=== PATIENT | female | born 1995 | race Caucasian/White ===

== ENCOUNTER 2017-11-02 22:20 | Emergency (ER) | payer OTHER ==
[~2017-11-02] VITALS: Ht 157.5 cm; Wt 56.7 kg
[~2017-11-02 22:20] MED LIST: ACET325 PO; ADAL40PEN INJ; Adipex-P37.5 M1 PO; Adipex-P37.5 MG PO; BIRTH CONTROL; CENTRUM KIDS; CEPH500 PO; CYCL10 PO; DIPH50; DULO30 PO; ENOX60I; ESCI5 PO; FERR325; FLAGYL; FLUO20 PO; HYDACE5325 PO; HYDACE7.5 PO; HYDMOR2; HYDMOR2 PO; MEDR150I IM; MERC50; MESA400ER; Norco 5-325 Ta1 EACH PO; OMEP20ER; ONDA8 PO; ONDA8ODT MM; ORTHO MICRONO0.35 MG PO; OXYACE5T PO; OXYC5; OXYC5 PO; PRED10; PROM25 PO; Percocet 5-3251 EACH PO; Prednisone10 MG PO; RXHYDMOR2 PO; RXONDA4ODT MM; SULTRIDS PO; Zofran Odt8 MG SL; [UNRECOGNIZED DRUG - OTHER]; [UNRECOGNIZED DRUG - REMARK]; [UNRECOGNIZED DRUG - REMARK]
[2017-11-03 01:00] LABS: Source, Urine Clean Catch
[2017-11-03 01:03] LABS: Bilirubin, Urine Neg (Neg); Blood, Urine Neg (Neg); Glucose Qualitative, Urine Neg (Neg); Ketones, Urine Neg (Neg); Leukocyte Esterase, Urine Neg (Neg); Nitrite, Urine Neg (Neg); Protein, Urine Neg (Neg); Urobilinogen, Urine NORM (Normal)
[2017-11-03 01:06] LABS: Appearance, Urine Clear (Clear); Color, Urine Pale Yellow (P-Yellow)
[2017-11-03] MEDS ORDERED: SPIR50 PO (01:34)
[2017-11-03] MEDS ORDERED: Vsl#3 Capsule1 EACH PO (01:34)
[2017-11-03 02:08] LABS: Alanine Aminotransfer (ALT/SGP 18 U/L (12-78); Albumin, Blood 3.6 g/dL (3.4-5.0); Albumin/Globulin Ratio 0.9 (0.8-1.8); Alk Phos 54 U/L (50-136); Anion Gap 12 mmol/L (6-16); Aspartate Aminotrans (AST/SGOT 24 U/L (12-37); Bilirubin, Total 0.2 mg/dL (0.1-1.0); Blood Urea Nitrogen 8 mg/dL (8-24); Bun/Creatinine Ratio 14.5 (12.0-20.0); CO2, Blood 23 mmol/L (21-32); Calcium, Blood 8.5 mg/dL (8.5-10.1); Chloride, Blood 107 mmol/L (98-108); Creatinine, Blood 0.55 mg/dL (0.40-1.00); Glomerular Filtration Rate >60 (60-); Glucose, Blood 74 mg/dL (70-99); Potassium, Blood 4.1 mmol/L (3.5-5.5); Sodium, Blood 142 mmol/L (136-145); Total Protein, Blood 7.6 g/dL (6.4-8.2)
[2017-11-03 02:10] LABS: BASOPHILS ABSOLUTE AUTO 0.05 K/mm3 (0.00-0.23); BASOPHILS PERCENT AUTO 0 % (0-2); EOSINOPHILS ABSOLUTE AUTO 0.65 K/mm3 (0.00-0.68); EOSINOPHILS PERCENT AUTO 5 % (0-6); Hematocrit 42.3 % (33.0-51.0); Hemoglobin 13.8 g/dL (11.5-16.0); IMMATURE GRAN ABSOLUTE AUTO 0.06 K/mm3 (0.00-0.10); IMMATURE GRAN PERCENT AUTO 1 % (0-1); LYMPHOCYTES ABSOLUTE AUTO 5.29 K/mm3 (0.84-5.20); LYMPHOCYTES PERCENT AUTO 40 % (21-46); MONOCYTES ABSOLUTE AUTO 0.92 K/mm3 (0.16-1.47); MONOCYTES PERCENT AUTO 7 % (4-13); Mean Corpuscular HGB 28.2 pg (26.0-34.0); Mean Corpuscular HGB Conc 32.6 g/dL (31.5-36.5); Mean Corpuscular Volume 86 fL (80-100); Mean Platelet Volume 10.7 fL (9.1-12.4); NEUTROPHILS PERCENT AUTO 47 % (41-73); Platelet Count 260 K/mm3 (150-400); RDW Coefficient Variation 13.2 % (11.7-14.2); RDW Standard Deviation 40.7 fL (35.1-46.3); White Blood Cell Count 13.17 K/mm3 (4.00-11.30)
[2017-12-01] MEDS ORDERED: Vsl#3 Capsule1 EACH (13:46)
[2017-12-01] MEDS ORDERED: Cyclobenzaprine5 MG (13:46)
[2017-12-01] MEDS ORDERED: Questran4 GM (13:46)
== END 2017-11-03 06:25 | disposition home or self-care (01) ==
LOC: ER 22:20
PROVIDERS: Emergency Medicine
DX: K51.90 Ulcerative colitis, unspecified, without complications (principal); N83.201 Unspecified ovarian cyst, right side; Z88.8 Allergy status to other drugs, medicaments and biological substances; Z79.899 Other long term (current) drug therapy; Z98.890 Other specified postprocedural states; Z90.49 Acquired absence of other specified parts of digestive tract
CPT/HCPCS: 74176; 76830; 76856; 80053; 81003; 81025; 83690; 85025; 96374; 96375; 96376; 99284; J1170; J2405

== ENCOUNTER 2017-12-08 10:27 | Day surgery (SDC) | payer OTHER ==
[~2017-12-08] VITALS: Ht 157.5 cm; Wt 81.2 kg
[~2017-12-08 10:27] MED LIST changes: +Cyclobenzaprine5 MG; +Questran4 GM; +SPIR50 PO; +Vsl#3 Capsule1 EACH; +Vsl#3 Capsule1 EACH PO
== END 2017-12-08 12:08 | disposition home or self-care (01) ==
LOC: ORSCSDS 10:27
PROVIDERS: Internal Medicine Gastroenterology
PROC: 0DBB8ZX Excision of Ileum, Via Natural or Artificial Opening Endoscopic, Diagnostic (ICD-10-PCS; principal; 2017-12-08 12:00)
DX: K51.90 Ulcerative colitis, unspecified, without complications (principal); Z79.899 Other long term (current) drug therapy; F41.8 Other specified anxiety disorders; H40.9 Unspecified glaucoma; E66.01 Morbid (severe) obesity due to excess calories; Z68.32 Body mass index [BMI] 32.0-32.9, adult
CPT/HCPCS: 88305; J7120

== ENCOUNTER 2019-03-14 07:13 | Emergency (ER) | payer OTHER ==
[~2019-03-14] VITALS: Ht 157.5 cm; Wt 80.7 kg
[~2019-03-14 07:13] MED LIST changes: +BUPR75 PO; +IBUP100S
[2019-03-14 09:11] LABS: Source, Urine Clean Catch
[2019-03-14 09:16] LABS: Bilirubin, Urine Neg (Neg); Blood, Urine Neg (Neg); Glucose Qualitative, Urine Neg (Neg); Ketones, Urine Neg (Neg); Leukocyte Esterase, Urine 1+ (Neg); Nitrite, Urine Neg (Neg); Protein, Urine Neg (Neg); Urobilinogen, Urine NORM (Normal)
[2019-03-14 09:24] LABS: Color, Urine Yellow (P-Yellow)
[2019-03-14 09:25] LABS: Appearance, Urine Clear (Clear)
[2019-03-14 09:26] LABS: Bacteria Rare /hpf; Red Blood Cells, Urine 0-2 /hpf (0-2); Squamous Epithelial Cells Mod /hpf (Few); White Blood Cells, Urine 0-2 /hpf (0-5)
[2019-03-14 09:34] LABS: Alanine Aminotransfer (ALT/SGP 29 U/L (12-78); Alk Phos 73 U/L (50-136); Anion Gap 7 mmol/L (6-16); Aspartate Aminotrans (AST/SGOT 28 U/L (12-37); Bilirubin, Total 0.2 mg/dL (0.1-1.0); Blood Urea Nitrogen 5 mg/dL (8-24); Bun/Creatinine Ratio 6.8 (12.0-20.0); CO2, Blood 23 mmol/L (21-32); Calcium, Blood 8.8 mg/dL (8.5-10.1); Chloride, Blood 107 mmol/L (98-108); Creatinine, Blood 0.74 mg/dL (0.40-1.00); Globulin, Blood 4.1 g/dL (2.2-4.0); Glomerular Filtration Rate >60 (60-); Glucose, Blood 94 mg/dL (70-99); Potassium, Blood 4.1 mmol/L (3.5-5.5); Sodium, Blood 137 mmol/L (136-145); Total Protein, Blood 8.1 g/dL (6.4-8.2)
[2019-03-14 09:49] LABS: BASOPHILS ABSOLUTE AUTO 0.07 K/mm3 (0.00-0.23); BASOPHILS PERCENT AUTO 1 % (0-2); EOSINOPHILS ABSOLUTE AUTO 0.13 K/mm3 (0.00-0.68); EOSINOPHILS PERCENT AUTO 1 % (0-6); Hematocrit 42.3 % (33.0-51.0); IMMATURE GRAN ABSOLUTE AUTO 0.08 K/mm3 (0.00-0.10); IMMATURE GRAN PERCENT AUTO 1 % (0-1); LYMPHOCYTES ABSOLUTE AUTO 1.73 K/mm3 (0.84-5.20); LYMPHOCYTES PERCENT AUTO 13 % (21-46); MONOCYTES ABSOLUTE AUTO 0.49 K/mm3 (0.16-1.47); MONOCYTES PERCENT AUTO 4 % (4-13); Mean Corpuscular HGB 27.9 pg (26.0-34.0); Mean Corpuscular HGB Conc 33.1 g/dL (31.5-36.5); Mean Corpuscular Volume 84 fL (80-100); NEUTROPHILS ABSOLUTE AUTO 11.13 K/mm3 (1.96-9.15); NEUTROPHILS PERCENT AUTO 82 % (41-73); Platelet Count 258 K/mm3 (150-400); RDW Coefficient Variation 13.2 % (11.7-14.2); RDW Standard Deviation 40.2 fL (35.1-46.3); Red Blood Cell Count 5.01 M/mm3 (3.80-5.20); White Blood Cell Count 13.63 K/mm3 (4.00-11.30)
[2019-03-14] MEDS ORDERED: IBUP600 PO (12:45)
== END 2019-03-14 13:30 | disposition home or self-care (01) ==
LOC: ER 07:13
PROVIDERS: Physician Assistant
DX: N83.201 Unspecified ovarian cyst, right side (principal); Z88.8 Allergy status to other drugs, medicaments and biological substances; Z79.899 Other long term (current) drug therapy; Z90.49 Acquired absence of other specified parts of digestive tract
CPT/HCPCS: 36415; 74177; 76830; 76856; 80053; 81001; 81025; 85025; 87086; 96361-59; 96372-59; 96374-59; 96375-59; 99284-25; J1885; J2405; J3010; J7030; Q9967

== ENCOUNTER 2019-07-17 07:26 | Emergency (ER) | payer BC, OTHER ==
[~2019-07-17] VITALS: Ht 157.5 cm; Wt 79.8 kg
[~2019-07-17 07:26] MED LIST changes: +IBUP600 PO
[2019-07-17 08:01] LABS: BASOPHILS ABSOLUTE AUTO 0.06 K/mm3 (0.00-0.23); BASOPHILS PERCENT AUTO 1 % (0-2); EOSINOPHILS ABSOLUTE AUTO 0.68 K/mm3 (0.00-0.68); EOSINOPHILS PERCENT AUTO 6 % (0-6); Hematocrit 43.7 % (33.0-51.0); Hemoglobin 14.2 g/dL (11.5-16.0); IMMATURE GRAN ABSOLUTE AUTO 0.02 K/mm3 (0.00-0.10); IMMATURE GRAN PERCENT AUTO 0 % (0-1); LYMPHOCYTES ABSOLUTE AUTO 3.21 K/mm3 (0.84-5.20); LYMPHOCYTES PERCENT AUTO 29 % (21-46); MONOCYTES ABSOLUTE AUTO 0.86 K/mm3 (0.16-1.47); MONOCYTES PERCENT AUTO 8 % (4-13); Mean Corpuscular HGB 27.8 pg (26.0-34.0); Mean Corpuscular HGB Conc 32.5 g/dL (31.5-36.5); Mean Corpuscular Volume 86 fL (80-100); Mean Platelet Volume 9.9 fL (9.1-12.4); NEUTROPHILS ABSOLUTE AUTO 6.24 K/mm3 (1.96-9.15); NEUTROPHILS PERCENT AUTO 56 % (41-73); Platelet Count 259 K/mm3 (150-400); RDW Coefficient Variation 12.8 % (11.7-14.2); RDW Standard Deviation 39.9 fL (35.1-46.3); Red Blood Cell Count 5.11 M/mm3 (3.80-5.20); White Blood Cell Count 11.07 K/mm3 (4.00-11.30)
[2019-07-17 08:17] LABS: Alanine Aminotransfer (ALT/SGP 35 U/L (12-78); Albumin, Blood 4.1 g/dL (3.4-5.0); Albumin/Globulin Ratio 1.1 (0.8-1.8); Alk Phos 65 U/L (50-136); Anion Gap 7 mmol/L (6-16); Aspartate Aminotrans (AST/SGOT 28 U/L (12-37); Bilirubin, Total 0.3 mg/dL (0.1-1.0); Blood Urea Nitrogen 7 mg/dL (8-24); Bun/Creatinine Ratio 8.6 (12.0-20.0); CO2, Blood 26 mmol/L (21-32); Calcium, Blood 9.1 mg/dL (8.5-10.1); Chloride, Blood 108 mmol/L (98-108); Creatinine, Blood 0.81 mg/dL (0.40-1.00); Globulin, Blood 3.8 g/dL (2.2-4.0); Glomerular Filtration Rate >60 (60-); Glucose, Blood 79 mg/dL (70-99); Potassium, Blood 3.7 mmol/L (3.5-5.5); Sodium, Blood 141 mmol/L (136-145); Total Protein, Blood 7.9 g/dL (6.4-8.2)
[2019-07-17] MEDS ORDERED: Amoxicillin500 MG PO (08:55)
[2019-07-17] MEDS ORDERED: Roxicodone5 MG PO (08:55)
== END 2019-07-17 09:02 | disposition home or self-care (01) ==
LOC: ER 07:26
PROVIDERS: Emergency Medicine
DX: K08.89 Other specified disorders of teeth and supporting structures (principal); K03.81 Cracked tooth; K51.90 Ulcerative colitis, unspecified, without complications; Z87.891 Personal history of nicotine dependence; Z88.8 Allergy status to other drugs, medicaments and biological substances; Z79.899 Other long term (current) drug therapy
CPT/HCPCS: 36415; 80053; 81025; 83690; 85025; 96361; 96374; 96375; 99284-25; J1170; J1885; J2405; J7120

== ENCOUNTER 2019-08-02 14:47 | Emergency (ER) | payer BC, OTHER ==
[~2019-08-02] VITALS: Ht 157.5 cm; Wt 80.7 kg
[~2019-08-02 14:47] MED LIST changes: +Amoxicillin500 MG PO; +Roxicodone5 MG PO
[2019-08-02 15:25] LABS: BASOPHILS ABSOLUTE AUTO 0.05 K/mm3 (0.00-0.23); BASOPHILS PERCENT AUTO 0 % (0-2); EOSINOPHILS ABSOLUTE AUTO 0.29 K/mm3 (0.00-0.68); EOSINOPHILS PERCENT AUTO 1 % (0-6); Hematocrit 43.7 % (33.0-51.0); Hemoglobin 14.4 g/dL (11.5-16.0); IMMATURE GRAN PERCENT AUTO 1 % (0-1); LYMPHOCYTES ABSOLUTE AUTO 2.94 K/mm3 (0.84-5.20); LYMPHOCYTES PERCENT AUTO 14 % (21-46); MONOCYTES ABSOLUTE AUTO 1.05 K/mm3 (0.16-1.47); MONOCYTES PERCENT AUTO 5 % (4-13); Mean Corpuscular HGB 28.6 pg (26.0-34.0); Mean Corpuscular Volume 87 fL (80-100); Mean Platelet Volume 10.2 fL (9.1-12.4); NEUTROPHILS ABSOLUTE AUTO 17.16 K/mm3 (1.96-9.15); NEUTROPHILS PERCENT AUTO 80 % (41-73); Platelet Count 293 K/mm3 (150-400); RDW Coefficient Variation 12.8 % (11.7-14.2); RDW Standard Deviation 40.4 fL (35.1-46.3); Red Blood Cell Count 5.04 M/mm3 (3.80-5.20); White Blood Cell Count 21.59 K/mm3 (4.00-11.30)
[2019-08-02 15:50] LABS: Alanine Aminotransfer (ALT/SGP 21 U/L (12-78); Albumin, Blood 4.1 g/dL (3.4-5.0); Albumin/Globulin Ratio 1.1 (0.8-1.8); Alk Phos 67 U/L (50-136); Anion Gap 5 mmol/L (6-16); Aspartate Aminotrans (AST/SGOT 23 U/L (12-37); Bilirubin, Total 0.6 mg/dL (0.1-1.0); Blood Urea Nitrogen 6 mg/dL (8-24); Bun/Creatinine Ratio 8.4 (12.0-20.0); CO2, Blood 26 mmol/L (21-32); Calcium, Blood 8.9 mg/dL (8.5-10.1); Chloride, Blood 107 mmol/L (98-108); Creatinine, Blood 0.71 mg/dL (0.40-1.00); Globulin, Blood 3.6 g/dL (2.2-4.0); Glomerular Filtration Rate >60 (60-); Glucose, Blood 91 mg/dL (70-99); Potassium, Blood 3.7 mmol/L (3.5-5.5); Sodium, Blood 138 mmol/L (136-145); Total Protein, Blood 7.7 g/dL (6.4-8.2)
[2019-08-02 16:53] LABS: Source, Urine Clean Catch
[2019-08-02 16:56] LABS: Bilirubin, Urine Neg (Neg); Blood, Urine 2+ (Neg); Glucose Qualitative, Urine Neg (Neg); Ketones, Urine 2+ (Neg); Leukocyte Esterase, Urine Neg (Neg); Nitrite, Urine Neg (Neg); Protein, Urine Neg (Neg); Specific Gravity, Urine 1.015 (1.003-1.022); Urobilinogen, Urine NORM (Normal); pH, Urine 6.5 (5.0-8.0)
[2019-08-02 17:06] LABS: Appearance, Urine Clear (Clear); Color, Urine Yellow (P-Yellow)
[2019-08-02 17:08] LABS: Red Blood Cells, Urine 0-2 /hpf (0-2); Squamous Epithelial Cells Many /hpf (Few); White Blood Cells, Urine Not Seen /hpf (0-5)
[2019-08-02 17:09] LABS: Bacteria Mod /hpf
== END 2019-08-02 19:37 | disposition short-term general hospital (02) ==
LOC: ER 14:47
PROVIDERS: Physician Assistant
DX: K63.1 Perforation of intestine (nontraumatic) (principal); Z88.8 Allergy status to other drugs, medicaments and biological substances; Z79.899 Other long term (current) drug therapy; Z87.891 Personal history of nicotine dependence
CPT/HCPCS: 36415; 74176; 80053; 81001; 83690; 85025; 87086; 93005; 93010; 96361; 96365; 96375; 96376; 99285-25; J1170; J1200; J2405; J2543; J2550; J3010; J7030

== ENCOUNTER 2019-09-09 11:27 | Emergency (ER) | payer BC, OTHER ==
[~2019-09-09] VITALS: Ht 157.5 cm; Wt 80.7 kg
[2019-09-09 12:10] LABS: BASOPHILS ABSOLUTE AUTO 0.04 K/mm3 (0.00-0.23); BASOPHILS PERCENT AUTO 1 % (0-2); EOSINOPHILS PERCENT AUTO 2 % (0-6); Hematocrit 44.5 % (33.0-51.0); Hemoglobin 14.7 g/dL (11.5-16.0); IMMATURE GRAN ABSOLUTE AUTO 0.03 K/mm3 (0.00-0.10); IMMATURE GRAN PERCENT AUTO 1 % (0-1); LYMPHOCYTES PERCENT AUTO 9 % (21-46); MONOCYTES ABSOLUTE AUTO 0.66 K/mm3 (0.16-1.47); MONOCYTES PERCENT AUTO 10 % (4-13); Mean Corpuscular HGB 28.1 pg (26.0-34.0); Mean Corpuscular Volume 85 fL (80-100); Mean Platelet Volume 10.2 fL (9.1-12.4); NEUTROPHILS ABSOLUTE AUTO 5.08 K/mm3 (1.96-9.15); NEUTROPHILS PERCENT AUTO 78 % (41-73); Platelet Count 232 K/mm3 (150-400); RDW Coefficient Variation 13.2 % (11.7-14.2); RDW Standard Deviation 40.8 fL (35.1-46.3); Red Blood Cell Count 5.23 M/mm3 (3.80-5.20); White Blood Cell Count 6.51 K/mm3 (4.00-11.30)
[2019-09-09 12:23] LABS: Source, Urine Clean Catch
[2019-09-09] MEDS ORDERED: CIPR500 PO (12:30)
[2019-09-09 12:34] LABS: Appearance, Urine Clear (Clear); Bilirubin, Urine Neg (Neg); Blood, Urine Neg (Neg); Color, Urine Yellow (P-Yellow); Glucose Qualitative, Urine Neg (Neg); Ketones, Urine 2+ (Neg); Leukocyte Esterase, Urine Neg (Neg); Nitrite, Urine Neg (Neg); Protein, Urine Neg (Neg); Urobilinogen, Urine NORM (Normal)
[2019-09-09 12:49] LABS: Alanine Aminotransfer (ALT/SGP 25 U/L (12-78); Albumin, Blood 4.7 g/dL (3.4-5.0); Albumin/Globulin Ratio 1.1 (0.8-1.8); Alk Phos 73 U/L (50-136); Anion Gap 7 mmol/L (6-16); Aspartate Aminotrans (AST/SGOT 20 U/L (12-37); Bilirubin, Total 0.3 mg/dL (0.1-1.0); Blood Urea Nitrogen 4 mg/dL (8-24); Bun/Creatinine Ratio 5.3 (12.0-20.0); CO2, Blood 24 mmol/L (21-32); Calcium, Blood 9.6 mg/dL (8.5-10.1); Chloride, Blood 106 mmol/L (98-108); Creatinine, Blood 0.75 mg/dL (0.40-1.00); Globulin, Blood 4.4 g/dL (2.2-4.0); Glomerular Filtration Rate >60 (60-); Glucose, Blood 91 mg/dL (70-99); Potassium, Blood 3.5 mmol/L (3.5-5.5); Sodium, Blood 137 mmol/L (136-145); Total Protein, Blood 9.1 g/dL (6.4-8.2)
[2019-09-09] MEDS ORDERED: Zofran4 MG PO (15:13)
[2019-09-09] MEDS ORDERED: Lomotil Tablet1 EACH PO (15:13)
== END 2019-09-09 15:28 | disposition home or self-care (01) ==
LOC: ER 11:27
PROVIDERS: Emergency Medicine
DX: B34.9 Viral infection, unspecified (principal); Z88.8 Allergy status to other drugs, medicaments and biological substances; Z79.899 Other long term (current) drug therapy; Z87.891 Personal history of nicotine dependence
CPT/HCPCS: 36415; 71260; 74177; 80053; 81003; 81025; 83690; 85025; 93005; 93010; 96361; 96374-59; 96375-59; 96376-59; 99284-25; J2270; J2405; J7030; Q9967

== ENCOUNTER 2020-05-31 00:29 | Emergency (ER) | payer BC, OTHER ==
[~2020-05-31] VITALS: Ht 157.5 cm; Wt 81.7 kg
[~2020-05-31 00:29] MED LIST changes: +CIPR500 PO; +Lomotil Tablet1 EACH PO; +Zofran4 MG PO
[2020-05-31 00:55] LABS: BASOPHILS ABSOLUTE AUTO 0.07 K/mm3 (0.00-0.23); BASOPHILS PERCENT AUTO 1 % (0-2); EOSINOPHILS ABSOLUTE AUTO 0.81 K/mm3 (0.00-0.68); EOSINOPHILS PERCENT AUTO 9 % (0-6); IMMATURE GRAN ABSOLUTE AUTO 0.03 K/mm3 (0.00-0.10); IMMATURE GRAN PERCENT AUTO 0 % (0-1); LYMPHOCYTES ABSOLUTE AUTO 2.64 K/mm3 (0.84-5.20); LYMPHOCYTES PERCENT AUTO 29 % (21-46); MONOCYTES ABSOLUTE AUTO 0.54 K/mm3 (0.16-1.47); MONOCYTES PERCENT AUTO 6 % (4-13); Mean Corpuscular HGB 27.8 pg (26.0-34.0); Mean Corpuscular HGB Conc 32.6 g/dL (31.5-36.5); Mean Corpuscular Volume 86 fL (80-100); Mean Platelet Volume 10.1 fL (9.1-12.4); NEUTROPHILS ABSOLUTE AUTO 5.05 K/mm3 (1.96-9.15); NEUTROPHILS PERCENT AUTO 55 % (41-73); Platelet Count 283 K/mm3 (150-400); RDW Coefficient Variation 13.2 % (11.7-14.2); RDW Standard Deviation 40.7 fL (35.1-46.3); Red Blood Cell Count 5.03 M/mm3 (3.80-5.20); White Blood Cell Count 9.14 K/mm3 (4.00-11.30)
[2020-05-31 01:16] LABS: Alanine Aminotransfer (ALT/SGP 51 U/L (12-78); Albumin, Blood 4.1 g/dL (3.4-5.0); Albumin/Globulin Ratio 1.1 (0.8-1.8); Alk Phos 64 U/L (50-136); Anion Gap 8 mmol/L (6-16); Aspartate Aminotrans (AST/SGOT 38 U/L (12-37); Bilirubin, Total 0.4 mg/dL (0.1-1.0); Blood Urea Nitrogen 6 mg/dL (8-24); Bun/Creatinine Ratio 10.5 (12.0-20.0); CO2, Blood 26 mmol/L (21-32); Calcium, Blood 8.9 mg/dL (8.5-10.1); Chloride, Blood 108 mmol/L (98-108); Creatinine, Blood 0.57 mg/dL (0.40-1.00); Globulin, Blood 3.8 g/dL (2.2-4.0); Glomerular Filtration Rate >60 (60-); Glucose, Blood 99 mg/dL (70-99); Potassium, Blood 3.7 mmol/L (3.5-5.5); Sodium, Blood 142 mmol/L (136-145); Total Protein, Blood 7.9 g/dL (6.4-8.2)
[2020-05-31 04:55] LABS: Source, Urine Clean Catch
[2020-05-31 04:57] LABS: Bilirubin, Urine Neg (Neg); Blood, Urine Neg (Neg); Glucose Qualitative, Urine Neg (Neg); Ketones, Urine Neg (Neg); Leukocyte Esterase, Urine Neg (Neg); Nitrite, Urine Neg (Neg); Protein, Urine 1+ (Neg); Specific Gravity, Urine 1.015 (1.003-1.022); Urobilinogen, Urine NORM (Normal)
[2020-05-31 04:59] LABS: Appearance, Urine Clear (Clear); Color, Urine Yellow (P-Yellow)
[2020-05-31] MEDS ORDERED: ONDA4ODT MM (06:46)
[2020-05-31] MEDS ORDERED: DELTASONE20 MG PO (06:46)
== END 2020-05-31 07:01 | disposition home or self-care (01) ==
LOC: ER 00:29
PROVIDERS: Physician Assistant
DX: K51.90 Ulcerative colitis, unspecified, without complications (principal); Z88.8 Allergy status to other drugs, medicaments and biological substances; Z88.1 Allergy status to other antibiotic agents
CPT/HCPCS: 36415; 74022; 80053; 83690; 85025; 96374; 96375; 96376; 99284-25; A9270; J2270; J2405; J7030; J7512

== ENCOUNTER → 2020-10-14 | Outpatient (CLI) | payer OTHER ==
[~2020-10-14] MED LIST changes: +DELTASONE20 MG PO; +ONDA4ODT MM
[2020-10-16 01:08] LABS: CHLAMYDIA TRACHOMATIS, NAA Negative (Negative)
== END ==
LOC: LAB SHORT 11:15 → LAB 11:15
PROVIDERS: Obstetrics & Gynecology
DX: Z01.419 Encounter for gynecological examination (general) (routine) without abnormal findings (principal); Z11.3 Encounter for screening for infections with a predominantly sexual mode of transmission; Z88.8 Allergy status to other drugs, medicaments and biological substances
CPT/HCPCS: 87491; 87591; G0123

== ENCOUNTER 2021-03-20 07:21 | Emergency (ER) | payer OTHER ==
[~2021-03-20] VITALS: Ht 157.5 cm; Wt 84.4 kg
[2021-03-20 08:18] LABS: BASOPHILS ABSOLUTE AUTO 0.09 K/mm3 (0.00-0.23); BASOPHILS PERCENT AUTO 1 % (0-2); EOSINOPHILS PERCENT AUTO 7 % (0-6); Hematocrit 43.2 % (33.0-51.0); Hemoglobin 14.3 g/dL (11.5-16.0); IMMATURE GRAN ABSOLUTE AUTO 0.05 K/mm3 (0.00-0.10); IMMATURE GRAN PERCENT AUTO 0 % (0-1); LYMPHOCYTES ABSOLUTE AUTO 2.57 K/mm3 (0.84-5.20); LYMPHOCYTES PERCENT AUTO 22 % (21-46); MONOCYTES ABSOLUTE AUTO 0.74 K/mm3 (0.16-1.47); MONOCYTES PERCENT AUTO 6 % (4-13); Mean Corpuscular HGB 28.6 pg (26.0-34.0); Mean Corpuscular HGB Conc 33.1 g/dL (31.5-36.5); Mean Corpuscular Volume 86 fL (80-100); Mean Platelet Volume 10.1 fL (9.1-12.4); NEUTROPHILS ABSOLUTE AUTO 7.61 K/mm3 (1.96-9.15); NEUTROPHILS PERCENT AUTO 64 % (41-73); Platelet Count 274 K/mm3 (150-400); RDW Coefficient Variation 13.3 % (11.7-14.2); RDW Standard Deviation 41.8 fL (35.1-46.3); White Blood Cell Count 11.86 K/mm3 (4.00-11.30)
[2021-03-20 08:36] LABS: Alanine Aminotransfer (ALT/SGP 30 U/L (12-78); Albumin, Blood 3.7 g/dL (3.4-5.0); Albumin/Globulin Ratio 0.9 (0.8-1.8); Alk Phos 60 U/L (50-136); Anion Gap 5 mmol/L (6-16); Aspartate Aminotrans (AST/SGOT 21 U/L (12-37); Bilirubin, Total 0.3 mg/dL (0.1-1.0); Blood Urea Nitrogen 5 mg/dL (8-24); Bun/Creatinine Ratio 7.2 (12.0-20.0); CO2, Blood 25 mmol/L (21-32); Calcium, Blood 8.9 mg/dL (8.5-10.1); Chloride, Blood 109 mmol/L (98-108); Globulin, Blood 4.2 g/dL (2.2-4.0); Glomerular Filtration Rate >60 (60-); Glucose, Blood 105 mg/dL (70-99); Potassium, Blood 3.7 mmol/L (3.5-5.5); Sodium, Blood 139 mmol/L (136-145); Total Protein, Blood 7.9 g/dL (6.4-8.2)
[2021-03-20 10:27] LABS: Source, Urine Clean Catch
[2021-03-20 10:34] LABS: Appearance, Urine Clear (Clear); Bilirubin, Urine Neg (Neg); Blood, Urine 5+ (Neg); Color, Urine Yellow (P-Yellow); Glucose Qualitative, Urine Neg (Neg); Ketones, Urine 2+ (Neg); Leukocyte Esterase, Urine Neg (Neg); Nitrite, Urine Neg (Neg); Protein, Urine Neg (Neg); Specific Gravity, Urine 1.005 (1.003-1.022); Urobilinogen, Urine NORM (Normal)
[2021-03-20 10:59] LABS: Bacteria Rare /hpf; Squamous Epithelial Cells Mod /hpf (Few); White Blood Cells, Urine 0-2 /hpf (0-5)
[2021-03-20] MEDS ORDERED: ONDA4ODT MM (12:44)
== END 2021-03-20 13:00 | disposition home or self-care (01) ==
LOC: ER 07:21
PROVIDERS: Emergency Medicine
DX: O20.0 Threatened abortion (principal); Z88.8 Allergy status to other drugs, medicaments and biological substances; Z3A.01 Less than 8 weeks gestation of pregnancy
CPT/HCPCS: 36415; 76801; 76817; 80053; 81001; 84702; 85025; 86900; 86901; 87086; 96374; 96375; 99284-25; A9270; J2270; J2405

== ENCOUNTER 2022-02-14 20:27 | Emergency (ER) | payer OTHER ==
[~2022-02-14] VITALS: Ht 157.5 cm; Wt 81.7 kg
[2022-02-14] MEDS ORDERED: PRENATAL TABLE1 EAC2 PO (21:20)
[2022-02-14 22:18] LABS: BASOPHILS ABSOLUTE AUTO 0.07 K/mm3 (0.00-0.23); BASOPHILS PERCENT AUTO 1 % (0-2); EOSINOPHILS ABSOLUTE AUTO 0.31 K/mm3 (0.00-0.68); EOSINOPHILS PERCENT AUTO 3 % (0-6); Hematocrit 42.4 % (33.0-51.0); Hemoglobin 14.3 g/dL (11.5-16.0); IMMATURE GRAN ABSOLUTE AUTO 0.05 K/mm3 (0.00-0.10); IMMATURE GRAN PERCENT AUTO 0 % (0-1); LYMPHOCYTES ABSOLUTE AUTO 3.75 K/mm3 (0.84-5.20); LYMPHOCYTES PERCENT AUTO 30 % (21-46); MONOCYTES PERCENT AUTO 8 % (4-13); Mean Corpuscular HGB 28.1 pg (26.0-34.0); Mean Corpuscular HGB Conc 33.7 g/dL (31.5-36.5); Mean Corpuscular Volume 83 fL (80-100); Mean Platelet Volume 10.3 fL (9.1-12.4); NEUTROPHILS ABSOLUTE AUTO 7.46 K/mm3 (1.96-9.15); NEUTROPHILS PERCENT AUTO 59 % (41-73); Platelet Count 273 K/mm3 (150-400); RDW Coefficient Variation 13.2 % (11.7-14.2); RDW Standard Deviation 40.7 fL (35.1-46.3); Red Blood Cell Count 5.09 M/mm3 (3.80-5.20); White Blood Cell Count 12.64 K/mm3 (4.00-11.30)
[2022-02-14 22:36] LABS: Albumin, Blood 4.1 g/dL (3.4-5.0); Albumin/Globulin Ratio 1.1 (0.8-1.8); Bilirubin, Total 0.4 mg/dL (0.1-1.0); Bun/Creatinine Ratio 11.1 (12.0-20.0); Calcium, Blood 9.5 mg/dL (8.5-10.1); Creatinine, Blood 0.63 mg/dL (0.40-1.00); Globulin, Blood 3.9 g/dL (2.2-4.0); Potassium, Blood 3.5 mmol/L (3.5-5.5)
[2022-02-15 00:01] LABS: Source, Urine Clean Catch
[2022-02-15 00:09] LABS: Bilirubin, Urine Neg (Neg); Blood, Urine Neg (Neg); Color, Urine Yellow (P-Yellow); Glucose Qualitative, Urine Neg (Neg); Ketones, Urine 4+ (Neg); Leukocyte Esterase, Urine Neg (Neg); Nitrite, Urine Neg (Neg); Protein, Urine 1+ (Neg); Specific Gravity, Urine 1.025 (1.003-1.022); Urobilinogen, Urine NORM (Normal)
[2022-02-15 00:18] LABS: Appearance, Urine Hazy (Clear); Bacteria Mod /hpf; Mucus Light (0-Heavy); Red Blood Cells, Urine 0-2 /hpf (0-2); Squamous Epithelial Cells Few /hpf (Few)
[2022-02-15] MEDS ORDERED: NITR100CA PO (00:39)
== END 2022-02-15 01:17 | disposition home or self-care (01) ==
LOC: ER 20:27
PROVIDERS: Student in an Organized Health Care Education/Training Program
DX: O26.891 Other specified pregnancy related conditions, first trimester (principal); R10.32 Left lower quadrant pain; M25.552 Pain in left hip; M54.9 Dorsalgia, unspecified; O28.8 Other abnormal findings on antenatal screening of mother; Z88.8 Allergy status to other drugs, medicaments and biological substances; Z79.899 Other long term (current) drug therapy; Z3A.08 8 weeks gestation of pregnancy
CPT/HCPCS: 36415; 76801; 80053; 81001; 84702; 85025; 96374; 99284-25; A9270; J2405

== ENCOUNTER → 2022-06-13 | Outpatient (CLI) | payer OTHER ==
[~2022-06-13] MED LIST changes: +NITR100CA PO; +PRENATAL TABLE1 EAC2 PO
[2022-06-14 10:35] LABS: Candida species (DNA Probe) Negative (NEGATIVE); G. vaginalis (DNA Probe) Negative (NEGATIVE); T. vaginalis (DNA Probe) Negative (NEGATIVE)
== END ==
LOC: LAB SHORT 16:45 → LAB 16:45
PROVIDERS: Obstetrics & Gynecology
DX: N92.1 Excessive and frequent menstruation with irregular cycle (principal)
CPT/HCPCS: 87480; 87510; 87660

== ENCOUNTER 2022-07-08 14:37 | Emergency (ER) | payer OTHER ==
[~2022-07-08] VITALS: Ht 157.5 cm; Wt 85.3 kg
[2022-07-08 15:42] LABS: BASOPHILS PERCENT AUTO 0 % (0-2); EOSINOPHILS ABSOLUTE AUTO 0.12 K/mm3 (0.00-0.68); EOSINOPHILS PERCENT AUTO 1 % (0-6); Hematocrit 44.3 % (33.0-51.0); Hemoglobin 14.5 g/dL (11.5-16.0); IMMATURE GRAN ABSOLUTE AUTO 0.38 K/mm3 (0.00-0.10); IMMATURE GRAN PERCENT AUTO 2 % (0-1); LYMPHOCYTES ABSOLUTE AUTO 1.48 K/mm3 (0.84-5.20); LYMPHOCYTES PERCENT AUTO 6 % (21-46); MONOCYTES ABSOLUTE AUTO 1.72 K/mm3 (0.16-1.47); MONOCYTES PERCENT AUTO 7 % (4-13); Mean Corpuscular HGB 28.1 pg (26.0-34.0); Mean Corpuscular HGB Conc 32.7 g/dL (31.5-36.5); Mean Corpuscular Volume 86 fL (80-100); Mean Platelet Volume 10.9 fL (9.1-12.4); NEUTROPHILS ABSOLUTE AUTO 21.95 K/mm3 (1.96-9.15); NEUTROPHILS PERCENT AUTO 85 % (41-73); Platelet Count 276 K/mm3 (150-400); RDW Coefficient Variation 13.8 % (11.7-14.2); RDW Standard Deviation 43.4 fL (35.1-46.3); Red Blood Cell Count 5.16 M/mm3 (3.80-5.20); White Blood Cell Count 25.75 K/mm3 (4.00-11.30)
[2022-07-08 16:03] LABS: Source, Urine Clean Catch
[2022-07-08 16:08] LABS: Appearance, Urine Hazy (Clear); Blood, Urine 1+ (Neg); Color, Urine Yellow (P-Yellow); Glucose Qualitative, Urine Neg (Neg); Ketones, Urine 4+ (Neg); Leukocyte Esterase, Urine 1+ (Neg); Nitrite, Urine Pos (Neg); Protein, Urine 3+ (Neg); Specific Gravity, Urine 1.025 (1.003-1.022); Urobilinogen, Urine 1+ (Normal)
[2022-07-08 16:19] LABS: Albumin, Blood 3.2 g/dL (3.4-5.0); Albumin/Globulin Ratio 0.7 (0.8-1.8); Bilirubin, Total 0.4 mg/dL (0.1-1.0); Bun/Creatinine Ratio 10.4 (12.0-20.0); Calcium, Blood 9.6 mg/dL (8.5-10.1); Creatinine, Blood 0.48 mg/dL (0.40-1.00); Globulin, Blood 4.9 g/dL (2.2-4.0); Potassium, Blood 3.9 mmol/L (3.5-5.5); Total Protein, Blood 8.1 g/dL (6.4-8.2)
[2022-07-08 16:20] LABS: Bilirubin, Urine 1+ (Neg)
[2022-07-08 16:21] LABS: Mucus Mod (0-Heavy)
[2022-07-08 16:22] LABS: Bacteria Mod /hpf; Red Blood Cells, Urine 0-2 /hpf (0-2); Squamous Epithelial Cells Few /hpf (Few)
[2022-07-08 17:21] LABS: Influenza A, PCR NEGATIVE (NEGATIVE); Influenza B, PCR NEGATIVE (NEGATIVE); Resp Syncytial Virus, PCR NEGATIVE (NEGATIVE); SARS-Cov-2 (COVID-19) PCR, MMC NEGATIVE (NEGATIVE)
[2022-07-08] MEDS ORDERED: PROM25 PO (19:36)
== END 2022-07-08 20:37 | disposition home or self-care (01) ==
LOC: ER 14:37
PROVIDERS: Emergency Medicine; Physician Assistant
DX: O98.512 Other viral diseases complicating pregnancy, second trimester (principal); A08.4 Viral intestinal infection, unspecified; Z20.822 Contact with and (suspected) exposure to COVID-19; Z3A.28 28 weeks gestation of pregnancy
CPT/HCPCS: 0241U; 36415; 72195; 74181; 80053; 81001; 83690; 85025; 87086; J2765; J7120

== ENCOUNTER 2022-09-02 10:32 | Inpatient (IN) | payer OTHER ==
[~2022-09-02] VITALS: Ht 157.5 cm; Wt 90.9 kg
[2022-09-02 11:16] LABS: BASOPHILS ABSOLUTE AUTO 0.06 K/mm3 (0.00-0.23); BASOPHILS PERCENT AUTO 0 % (0-2); EOSINOPHILS ABSOLUTE AUTO 0.19 K/mm3 (0.00-0.68); EOSINOPHILS PERCENT AUTO 1 % (0-6); Hematocrit 38.9 % (33.0-51.0); IMMATURE GRAN ABSOLUTE AUTO 0.16 K/mm3 (0.00-0.10); IMMATURE GRAN PERCENT AUTO 1 % (0-1); LYMPHOCYTES ABSOLUTE AUTO 2.72 K/mm3 (0.84-5.20); LYMPHOCYTES PERCENT AUTO 19 % (21-46); MONOCYTES ABSOLUTE AUTO 0.89 K/mm3 (0.16-1.47); MONOCYTES PERCENT AUTO 6 % (4-13); Mean Corpuscular HGB 27.1 pg (26.0-34.0); Mean Corpuscular HGB Conc 33.4 g/dL (31.5-36.5); Mean Corpuscular Volume 81 fL (80-100); Mean Platelet Volume 11.5 fL (9.1-12.4); NEUTROPHILS PERCENT AUTO 73 % (41-73); Platelet Count 223 K/mm3 (150-400); RDW Coefficient Variation 13.7 % (11.7-14.2); RDW Standard Deviation 40.1 fL (35.1-46.3); White Blood Cell Count 14.72 K/mm3 (4.00-11.30)
[2022-09-02 11:28] LABS: Albumin, Blood 2.6 g/dL (3.4-5.0); Albumin/Globulin Ratio 0.6 (0.8-1.8); Bilirubin, Total 0.4 mg/dL (0.1-1.0); Bun/Creatinine Ratio 9.8 (12.0-20.0); Creatinine, Blood 0.51 mg/dL (0.40-1.00); Globulin, Blood 4.7 g/dL (2.2-4.0); Potassium, Blood 3.9 mmol/L (3.5-5.5); Total Protein, Blood 7.3 g/dL (6.4-8.2)
[2022-09-02 13:53] LABS: Protein, Urine Random 55.6 mg/dL (0.0-11.9); Protein/Creat Ratio, Ur Random 0.2
--- NOTE | 2022-09-02 20:01 | NUR ---
DR HODGES IS CALLED FOR ADMISSION ORDERS. AMYLASE AND LIPASE ADDED TO 2000 LABS.
[2022-09-02 20:58] LABS: Albumin, Blood 2.5 g/dL (3.4-5.0); Albumin/Globulin Ratio 0.6 (0.8-1.8); Bilirubin, Total 0.5 mg/dL (0.1-1.0); Calcium, Blood 8.9 mg/dL (8.5-10.1); Creatinine, Blood 0.5 mg/dL (0.40-1.00); Globulin, Blood 4.3 g/dL (2.2-4.0); Potassium, Blood 3.8 mmol/L (3.5-5.5); Total Protein, Blood 6.8 g/dL (6.4-8.2)
--- NOTE | 2022-09-02 21:00 | NUR ---
LABS REVIEWED WITH DR HODGES. ORDERS FOR STOOL SPECIMEN RECEIVED.
[2022-09-02 21:32] LABS: BASOPHILS ABSOLUTE AUTO 0.04 K/mm3 (0.00-0.23); BASOPHILS PERCENT AUTO 0 % (0-2); EOSINOPHILS ABSOLUTE AUTO 0.07 K/mm3 (0.00-0.68); EOSINOPHILS PERCENT AUTO 1 % (0-6); Hematocrit 37.7 % (33.0-51.0); Hemoglobin 12.7 g/dL (11.5-16.0); IMMATURE GRAN ABSOLUTE AUTO 0.11 K/mm3 (0.00-0.10); IMMATURE GRAN PERCENT AUTO 1 % (0-1); LYMPHOCYTES ABSOLUTE AUTO 2.58 K/mm3 (0.84-5.20); LYMPHOCYTES PERCENT AUTO 19 % (21-46); MONOCYTES ABSOLUTE AUTO 0.83 K/mm3 (0.16-1.47); MONOCYTES PERCENT AUTO 6 % (4-13); Mean Corpuscular HGB 27.7 pg (26.0-34.0); Mean Corpuscular HGB Conc 33.7 g/dL (31.5-36.5); Mean Corpuscular Volume 82 fL (80-100); Mean Platelet Volume 11.8 fL (9.1-12.4); NEUTROPHILS ABSOLUTE AUTO 9.86 K/mm3 (1.96-9.15); NEUTROPHILS PERCENT AUTO 73 % (41-73); Platelet Count 204 K/mm3 (150-400); RDW Coefficient Variation 13.8 % (11.7-14.2); RDW Standard Deviation 41.1 fL (35.1-46.3); Red Blood Cell Count 4.58 M/mm3 (3.80-5.20); White Blood Cell Count 13.49 K/mm3 (4.00-11.30)
--- NOTE | 2022-09-02 21:42 | NUR ---
PT IS HAVING PAIN AND NAUSEA UNRELIEVED BY MEDICATION. NEW ORDERS RECEIVED.
--- NOTE | 2022-09-02 22:07 | NUR ---
PT HAS EPISODE OF EMESIS, APPROX 200ML ORANGE LIQUID. PT HAD ORANGE POPSICLE EARLIER.
--- NOTE | 2022-09-02 22:46 | NUR ---
PT IS HAVING INCREASING ABD PAIN AND NAUSEA. ABD/PELVIC CT ORDERED BY PROVIDER.
--- NOTE | 2022-09-02 23:39 | NUR ---
DR HODGES IS CALLED TO BEDSIDE. AWAITING CT RESULTS.
[2022-09-03 00:38] LABS: BASOPHILS ABSOLUTE AUTO 0.02 K/mm3 (0.00-0.23); BASOPHILS PERCENT AUTO 0 % (0-2); EOSINOPHILS ABSOLUTE AUTO 0.04 K/mm3 (0.00-0.68); EOSINOPHILS PERCENT AUTO 0 % (0-6); Hematocrit 34.7 % (33.0-51.0); Hemoglobin 11.8 g/dL (11.5-16.0); IMMATURE GRAN ABSOLUTE AUTO 0.07 K/mm3 (0.00-0.10); IMMATURE GRAN PERCENT AUTO 1 % (0-1); LYMPHOCYTES PERCENT AUTO 17 % (21-46); MONOCYTES ABSOLUTE AUTO 0.78 K/mm3 (0.16-1.47); MONOCYTES PERCENT AUTO 7 % (4-13); Mean Corpuscular HGB 27.7 pg (26.0-34.0); Mean Corpuscular Volume 82 fL (80-100); Mean Platelet Volume 11.4 fL (9.1-12.4); NEUTROPHILS ABSOLUTE AUTO 8.89 K/mm3 (1.96-9.15); NEUTROPHILS PERCENT AUTO 75 % (41-73); Platelet Count 195 K/mm3 (150-400); RDW Coefficient Variation 13.8 % (11.7-14.2); RDW Standard Deviation 40.2 fL (35.1-46.3); Red Blood Cell Count 4.26 M/mm3 (3.80-5.20)
[2022-09-03 00:54] LABS: Albumin, Blood 2.3 g/dL (3.4-5.0); Albumin/Globulin Ratio 0.6 (0.8-1.8); Bilirubin, Total 0.5 mg/dL (0.1-1.0); Bun/Creatinine Ratio 6.2 (12.0-20.0); Calcium, Blood 8.5 mg/dL (8.5-10.1); Creatinine, Blood 0.48 mg/dL (0.40-1.00); Globulin, Blood 4.1 g/dL (2.2-4.0); Potassium, Blood 3.6 mmol/L (3.5-5.5); Total Protein, Blood 6.4 g/dL (6.4-8.2)
[2022-09-03 05:39] LABS: BASOPHILS ABSOLUTE AUTO 0.02 K/mm3 (0.00-0.23); BASOPHILS PERCENT AUTO 0 % (0-2); EOSINOPHILS ABSOLUTE AUTO 0.03 K/mm3 (0.00-0.68); EOSINOPHILS PERCENT AUTO 0 % (0-6); Hematocrit 33.5 % (33.0-51.0); Hemoglobin 11.4 g/dL (11.5-16.0); IMMATURE GRAN ABSOLUTE AUTO 0.09 K/mm3 (0.00-0.10); IMMATURE GRAN PERCENT AUTO 1 % (0-1); LYMPHOCYTES ABSOLUTE AUTO 1.95 K/mm3 (0.84-5.20); LYMPHOCYTES PERCENT AUTO 17 % (21-46); MONOCYTES ABSOLUTE AUTO 0.84 K/mm3 (0.16-1.47); MONOCYTES PERCENT AUTO 7 % (4-13); Mean Corpuscular HGB 27.7 pg (26.0-34.0); Mean Corpuscular Volume 82 fL (80-100); Mean Platelet Volume 11.1 fL (9.1-12.4); NEUTROPHILS ABSOLUTE AUTO 8.43 K/mm3 (1.96-9.15); NEUTROPHILS PERCENT AUTO 74 % (41-73); Platelet Count 201 K/mm3 (150-400); RDW Coefficient Variation 13.9 % (11.7-14.2); RDW Standard Deviation 40.9 fL (35.1-46.3); Red Blood Cell Count 4.11 M/mm3 (3.80-5.20); White Blood Cell Count 11.36 K/mm3 (4.00-11.30)
--- NOTE | 2022-09-03 06:15 | NUR ---
0615 REPORT RECEIVED FROM DB MILTON AT FAMILY .
[2022-09-03 06:29] LABS: Albumin, Blood 2.2 g/dL (3.4-5.0); Albumin/Globulin Ratio 0.6 (0.8-1.8); Bilirubin, Total 0.5 mg/dL (0.1-1.0); Bun/Creatinine Ratio 7.5 (12.0-20.0); Calcium, Blood 8.5 mg/dL (8.5-10.1); Creatinine, Blood 0.53 mg/dL (0.40-1.00); Globulin, Blood 3.8 g/dL (2.2-4.0); Potassium, Blood 3.7 mmol/L (3.5-5.5)
--- NOTE | 2022-09-03 07:03 | NUR ---
REPORT CALLED TO YOAN KLINE. PT IS TRANSFERRED VIA BED TO SURGICAL FLOOR ROOM 208. PT IS UP TO THE BATHROOM PRIOR TO TRANSFER AND STARTS TO BECOME PAINFUL AND NAUSEATED. SHE IS MEDICATED WITH MORPHINE AND PHENERGAN IV. CONSULT IS CALLED TO DR. CONDE'S ANSWERRING SERVICE FOR THIS AM.
--- NOTE | 2022-09-03 07:25 | NUR ---
PT ARRIVED TO UNIT AT APROX 0645 FROM [facility]. PT REPORTS 7/10 GENERALIZED ABD PAIN. PT REPORTS PAIN AT TIMES RADIATES AROUND TO BACK, DOES NOT FEEL ABD GETTING TIGHT WITH PAIN. ABD MUSCLES RELAXED, TENDERNESS TO R SIDE W/PALPATION. MEDICATED WITH 0.5MG DILAUDID UPON ARRIVAL. AT THIS TIME PT REPORTS PAIN IMPROVED, 3/10. APPEARS MORE COMFORTABLE. PT GIVEN ICE CHIPS, EDUCATED ON TAKING ONLY SMALL AMTS FOR ORAL COMFORT. IVF RUNNING 150ML/HR. PT EDUCATED TO CALL IF ANY CHANGES OR CONCERNS.
--- NOTE | 2022-09-03 14:10 | NUR ---
PT WITH 100ML BRIGHT GREEN EMESIS. C/O PAIN MID ABD/L SIDE PAIN AT THIS TIME. MEDICATED WITH 0.5 MG DILAUDID PER EMAR AND 2MG ZOFRAN. PT APPEARS MORE COMFORTABLE FOLLOWING ADMINISTRATION. [facility] WAS HERE TO EVALUATE PT AT APROX 1240. FATHER AT BEDSIDE.
--- NOTE | 2022-09-03 17:06 | NUR ---
DR HODGES IN ROOM AT APROX 1615 TO SEE PT. PLAN IS TO CONTINUE BOWEL REST AND IVF W/PAIN MGMT AT THIS TIME. SEE PROGRESS NOTE IN PT CHART FOR FULL PLAN.
--- NOTE | 2022-09-03 18:47 | NUR ---
SHIFT SUMMARY PT HAS CONTINUED TO HAVE ABD PAIN W/ N/V-MEDICATED PER EMAR, STATES MEDICATION HELPS "SOME", MAKES IT TOLERABLE. HAD TWO EPISODES OF BRIGHT GREEN EMESIS 100ML EACH TIME. IVF RUNNING 125/HR, PT NPO OTHER THAN SMALL AMT ICE CHIPS PER COMFORT. URINE DARK IN COLOR, VOIDING T/O SHIFT. [facility] MONITORING FHT ONCE PER SHIFT, DID EVAL FOR CONTRACTIONS ONCE, STRIP ON CHART. PT UP TO SHOWER. AMBULATED IN HALLWAY X'S 2. FAMILY AT BEDSIDE.
--- NOTE | 2022-09-04 03:43 | NUR ---
2000: IV FLUIDS BOLUS GIVEN. DECREASE OUTPUT WITH DARK URINE. PAIN STILL HAVING CONSTANT PAIN, COMES LIKE WAVES. PAIN MANAGED WITH MORPHINE AND DILAUDID. PT ALSO REPORTS NAUSEA AND INTERMITTENT VOMITING - LESS THAN 100ML EACH TIME. 0230: PT REPORTS HAVING CONTRACTIONS INTERMITTENTLY. UNABLE TO DETERMINE IF THE FETUS HAS BEEN ACTIVE. NOTIFIED LAUREN MILTON FROM FAMILY . LAUREN MILTON CAME IN TO SEE PT, EVALUATED WITH MONITOR. NEW FLUID BOLUS ORDERED. LAB REQUEST TO BE DRAWN WELL. CALL LIGHT WITHIN REACH. WILL CONTINUE TO MONITOR.
[2022-09-04 04:15] LABS: Mean Corpuscular HGB 27.5 pg (26.0-34.0); Mean Corpuscular HGB Conc 33.3 g/dL (31.5-36.5); Mean Corpuscular Volume 82 fL (80-100); Mean Platelet Volume 11.4 fL (9.1-12.4); Platelet Count 195 K/mm3 (150-400); RDW Coefficient Variation 13.7 % (11.7-14.2); Red Blood Cell Count 4.37 M/mm3 (3.80-5.20); White Blood Cell Count 4.16 K/mm3 (4.00-11.30)
[2022-09-04 04:47] LABS: Albumin, Blood 1.9 g/dL (3.4-5.0); Albumin/Globulin Ratio 0.5 (0.8-1.8); Bilirubin, Total 0.7 mg/dL (0.1-1.0); Bun/Creatinine Ratio 9.1 (12.0-20.0); Calcium, Blood 8.5 mg/dL (8.5-10.1); Creatinine, Blood 0.55 mg/dL (0.40-1.00); Globulin, Blood 3.9 g/dL (2.2-4.0); Potassium, Blood 3.4 mmol/L (3.5-5.5); Total Protein, Blood 5.8 g/dL (6.4-8.2)
--- NOTE | 2022-09-04 04:53 | NUR ---
0441: Report received from LAB, lactic acid of 2.1. Notified Elizabet Conte RN from Family . Elizabet MILTON will notify Dr. Olivier and will provide an update with the patient's condition. Will wait for orders/plan.
--- NOTE | 2022-09-04 04:54 | NUR ---
DR HODGES UPDATED WITH AM LABS INCLUDING LACTIC ACID 2.1 AND FHT. SHE WILL CONSULT WITH DR CONDE AND RETURN CALL.
--- NOTE | 2022-09-04 05:02 | NUR ---
0502: Elizabet MILTON from Family called back, she spoked to Dr. Olivier and Dr. Olivier will touch base with Dr. Henderson regarding lactic acid trending up. An order of fluids bolus x1 added.
[2022-09-04 05:36] LABS: BAND PERCENT MAN 33 % (0-8); BASOPHILS PERCENT MAN 0 % (0-2); EOSINOPHILS PERCENT MAN 0 % (0-6); LYMPHOCYTES ABSOLUTE MAN 1.04 K/mm3 (0.84-5.20); LYMPHOCYTES PERCENT MAN 25 % (21-46); MONOCYTES ABSOLUTE MAN 0.37 K/mm3 (0.16-1.47); MONOCYTES PERCENT MAN 9 % (4-13); MYELOCYTE ABSOLUTE MAN 0.04 K/mm3 (0.00-0.00); MYELOCYTE PERCENT MAN 1 % (0-0); SEG NEUTROPHILS PERCENT MAN 32 % (41-73); TOTAL CELLS COUNTED 100
--- NOTE | 2022-09-04 06:50 | NUR ---
POWER GLIDE ATTEMPT FAILED IN L UPPER ARM. MANUAL PRESSURE HELD BY RN AND PRESSURE DRESSING PLACED.
[2022-09-04 07:47] LABS: Hemoglobin 11.7 g/dL (11.5-16.0); Mean Corpuscular HGB 27.6 pg (26.0-34.0); Mean Corpuscular HGB Conc 33.4 g/dL (31.5-36.5); Mean Corpuscular Volume 83 fL (80-100); Mean Platelet Volume 11.5 fL (9.1-12.4); Platelet Count 206 K/mm3 (150-400); RDW Coefficient Variation 13.9 % (11.7-14.2); Red Blood Cell Count 4.24 M/mm3 (3.80-5.20); White Blood Cell Count 4.98 K/mm3 (4.00-11.30)
--- NOTE | 2022-09-04 08:17 | NUR ---
5730: LAUREN MILTON, IN CONTACT WITH DR. HODGES WITH PLAN. ATTEMPTING TO PLACE PIV. NO SUCCESS. LAUREN MILTON ABLE TO PLACE A NEW IV ON L FOREARM AND POWERGLIDE AT R ARM. FLUID BOLUS INFUSING. PAIN MED, DILAUDID AND ZOFRAN GIVEN TO PT. DAY SHIFT CHARGE NURSE HORACIO IS ALSO ASSISTING. HORACIO MILTON, PROVIDED AN UPDATE TO FAMILY.
[2022-09-04 08:23] LABS: BAND PERCENT MAN 44 % (0-8); BASOPHILS PERCENT MAN 0 % (0-2); EOSINOPHILS PERCENT MAN 0 % (0-6); LYMPHOCYTES ABSOLUTE MAN 0.79 K/mm3 (0.84-5.20); LYMPHOCYTES PERCENT MAN 16 % (21-46); METAMYELOCYTE ABSOLUTE MAN 0.14 K/mm3 (0.00-0.00); METAMYELOCYTE PERCENT MAN 3 % (0-0); MONOCYTES ABSOLUTE MAN 0.79 K/mm3 (0.16-1.47); MONOCYTES PERCENT MAN 16 % (4-13); MYELOCYTE ABSOLUTE MAN 0.04 K/mm3 (0.00-0.00); MYELOCYTE PERCENT MAN 1 % (0-0); NEUTROPHILS ABSOLUTE MAN 3.18 K/mm3 (1.96-9.15); SEG NEUTROPHILS PERCENT MAN 20 % (41-73); TOTAL CELLS COUNTED 100
--- NOTE | 2022-09-04 09:36 | NUR ---
PT TRANSFERED TO [facility]. BELONGINGS TAKEN DOWN.
--- NOTE | 2022-09-04 11:18 | NUR ---
PT IN ROOM 130 AT 1112. REPORT RECEIVED FROM YOAN VALLEJO. ASSUMED CARE/RECOVERY OF PT. PT TO STAY ON CLEAR LIQUID DIET UNTIL FURTHER NOTICE. PT IS TRIALING OFF OXYGEN WITH 95% O2. WILL CONTINTUE TO MONITOR.
--- NOTE | 2022-09-05 04:21 | NUR ---
0030 Juarez removed per patient don
[2022-09-05 09:33] LABS: Hemoglobin 9.8 g/dL (11.5-16.0); Mean Corpuscular HGB 28.1 pg (26.0-34.0); Mean Corpuscular HGB Conc 33.8 g/dL (31.5-36.5); Mean Corpuscular Volume 83 fL (80-100); Mean Platelet Volume 11.2 fL (9.1-12.4); Platelet Count 199 K/mm3 (150-400); RDW Standard Deviation 42.4 fL (35.1-46.3); Red Blood Cell Count 3.49 M/mm3 (3.80-5.20)
[2022-09-05 10:04] LABS: BAND PERCENT MAN 38 % (0-8); BASOPHILS ABSOLUTE MAN 0.06 K/mm3 (0.00-0.23); BASOPHILS PERCENT MAN 1 % (0-2); EOSINOPHILS ABSOLUTE MAN 0.25 K/mm3 (0.00-0.68); EOSINOPHILS PERCENT MAN 4 % (0-6); LYMPHOCYTES ABSOLUTE MAN 0.94 K/mm3 (0.84-5.20); LYMPHOCYTES PERCENT MAN 15 % (21-46); METAMYELOCYTE ABSOLUTE MAN 0.18 K/mm3 (0.00-0.00); METAMYELOCYTE PERCENT MAN 3 % (0-0); MONOCYTES ABSOLUTE MAN 0.81 K/mm3 (0.16-1.47); MONOCYTES PERCENT MAN 13 % (4-13); MYELOCYTE ABSOLUTE MAN 0.06 K/mm3 (0.00-0.00); MYELOCYTE PERCENT MAN 1 % (0-0); NEUTROPHILS ABSOLUTE MAN 3.96 K/mm3 (1.96-9.15); SEG NEUTROPHILS PERCENT MAN 25 % (41-73); TOTAL CELLS COUNTED 100
[2022-09-05 14:18] LABS: Albumin, Blood 1.6 g/dL (3.4-5.0); Albumin/Globulin Ratio 0.5 (0.8-1.8); Bilirubin, Total 0.3 mg/dL (0.1-1.0); Bun/Creatinine Ratio 12.6 (12.0-20.0); Calcium, Blood 8.5 mg/dL (8.5-10.1); Creatinine, Blood 0.63 mg/dL (0.40-1.00); Globulin, Blood 3.4 g/dL (2.2-4.0); Potassium, Blood 3.4 mmol/L (3.5-5.5)
--- NOTE | 2022-09-05 23:51 | NUR ---
pt asked about assistance to restroom. Notified nurs.
--- NOTE | 2022-09-05 23:54 | NUR ---
Patient was sleeping. Support person was holding Baby and requested [employer]. Notified nurse.
[2022-09-06 06:29] LABS: Albumin, Blood 1.7 g/dL (3.4-5.0); Albumin/Globulin Ratio 0.5 (0.8-1.8); Bilirubin, Total 0.3 mg/dL (0.1-1.0); Bun/Creatinine Ratio 11.2 (12.0-20.0); Calcium, Blood 8.5 mg/dL (8.5-10.1); Creatinine, Blood 0.54 mg/dL (0.40-1.00); Globulin, Blood 3.6 g/dL (2.2-4.0); Potassium, Blood 3.3 mmol/L (3.5-5.5); Total Protein, Blood 5.3 g/dL (6.4-8.2)
[2022-09-06 09:36] LABS: Magnesium, Blood 1.9 mg/dL (1.6-2.4); Phosphorus, Blood 3.7 mg/dL (2.5-4.9)
--- NOTE | 2022-09-06 11:52 | NUR ---
AGREE WITH ABOVE ASSESSMENT, PAO MILTONC
--- NOTE | 2022-09-06 13:35 | NUR ---
pt retort fireman machine quit working, will replaced with another one and will get pt an iv dose of iv meds until a replacement pump is available.
--- NOTE | 2022-09-06 14:48 | NUR ---
pcu here to put in iv powerglide with ultrasound.
--- NOTE | 2022-09-06 15:44 | NUR ---
IV RESTARTED, WITH DILAUDID AND LR FLUIDS. POTASSIUM STARTED, PHARMACY REPORTS COMPATABLE WITH LR AND DILAUDID
--- NOTE | 2022-09-06 17:52 | NUR ---
PATIENT TO IMAGING VIA W/C AT THIS TIME.
--- NOTE | 2022-09-06 17:57 | NUR ---
up to xray via wheelchair for abd series that was recommended to get by dr neal to dr gross.
--- NOTE | 2022-09-06 18:14 | NUR ---
PATIENT RETURNED FROM XRAY AT THIS TIME.
--- NOTE | 2022-09-07 10:12 | NUR ---
PATIENT PUMPED 8 ML BREAST MILK.
--- NOTE | 2022-09-07 12:35 | NUR ---
PATIENT PUMPED 12 MLS.
--- NOTE | 2022-09-07 15:59 | NUR ---
agree with above asessment abdelrahman childersc
--- NOTE | 2022-09-07 16:20 | NUR ---
page to dr montero. pt requests being moved to a soft diet, she needs some potatos or something, it will slow her watery stools down. she reports that this is what normally works for her, she hasnt had any vomiting all day and would like to try what works for her
[2022-09-08 06:07] LABS: Bun/Creatinine Ratio 1.8 (12.0-20.0); Calcium, Blood 8.6 mg/dL (8.5-10.1); Creatinine, Blood 0.56 mg/dL (0.40-1.00); Magnesium, Blood 1.7 mg/dL (1.6-2.4); Potassium, Blood 3.4 mmol/L (3.5-5.5)
--- NOTE | 2022-09-08 12:21 | NUR ---
after pt done eating will dc to boarder status, pt educated on how to give her own insulin, she isnt going home on insulin, but did require 3units coverage for lunch. pt did very will giving herself her 3 units. encouraged pt to get in with dr lowery to manage her diabetes as soon as she can, pt mom and brother are also diabetic and use insulin at home.
--- NOTE | 2022-09-08 12:48 | NUR ---
IVF RATE INCREASED TO 250 CC/HR PER ORDER.
--- NOTE | 2022-09-08 18:33 | NUR ---
pt more painful the last 1/2 of the shift with having all the stools, pt is dumping her hat and then going more, not much for urine output. iv fluids still at 250cc/hr.
--- NOTE | 2022-09-08 18:49 | NUR ---
DR TEJADA UPDATED ON THE I&O AND PATIENTS TINCREASED PAIN DUE TO STOOLING SO MUCH. TO RUN IV FLUIDS AT 250CC/HR THRU THE NIGHT.
[2022-09-09 08:53] LABS: Bun/Creatinine Ratio 3.4 (12.0-20.0); Calcium, Blood 8.5 mg/dL (8.5-10.1); Creatinine, Blood 0.59 mg/dL (0.40-1.00); Magnesium, Blood 1.6 mg/dL (1.6-2.4); Phosphorus, Blood 3.5 mg/dL (2.5-4.9); Potassium, Blood 3.4 mmol/L (3.5-5.5)
--- NOTE | 2022-09-09 13:50 | NUR ---
REPT TO Jose Alberto RODRIGUEZ RN
--- NOTE | 2022-09-09 15:26 | NUR ---
PER DR. CONDE'S NURSE NOTIFY. LAST 12 HOUR STOOL OUTPUT OF 5,375 / 12 = 447 ML/HR OF 20 MEQ KCL RUNNING. LACTATED RINGERS' TURNED OFF.
--- NOTE | 2022-09-09 15:35 | NUR ---
DR LYNCH IN THE [facility] DISCUSSING TEST RESULTS AND PLAN OF CARE
[2022-09-10 06:11] LABS: Bun/Creatinine Ratio 3.9 (12.0-20.0); Calcium, Blood 8.3 mg/dL (8.5-10.1); Creatinine, Blood 0.51 mg/dL (0.40-1.00); Potassium, Blood 3.9 mmol/L (3.5-5.5)
--- NOTE | 2022-09-10 14:46 | NUR ---
12 STOOL OUTPUT FROM [id number] IS 3,500ml X 0.5 / 12 = 145. New fluid rate adjusted to 145 ml/hr.
--- NOTE | 2022-09-11 03:13 | NUR ---
KCl NS rate changed from 145ml/hr to 220ml/hr at 0300 according to stool output.
[2022-09-11] MEDS ORDERED: ONDA4 PO (12:28)
[2022-09-11] MEDS ORDERED: NYST237S MT (12:29)
[2022-09-11] MEDS ORDERED: CANASA1000 MG PR (12:34)
--- NOTE | 2022-09-11 16:08 | NUR ---
PT D/C'D HOME AT 1405. PT TOOK ALL BELONGINGS HOME WITH HER. PT ESCORTED TO PRIVATE CAR BY RN.
--- NOTE | 2022-09-11 16:10 | NUR ---
PT RECEIVED WRITTEN AND VERBAL DISCHARGE INSTRUCTIONS AT 1330 TODAY. ALL QUESTIONS WERE ANSWERED, AND PT VERBALIZED HER UNDERSTANDING
== END 2022-09-11 14:05 | disposition home or self-care (01) | DRG 787 ==
LOC: OBS 10:32 → BC 10:32 → OBS 19:11 → SURS 19:12 → BC 19:12 → SURS 19:12 → BC 09-03 05:49
PROVIDERS: Obstetrics & Gynecology; Surgery; ADMIT Obstetrics & Gynecology
PROC: 0UN00ZZ Release Right Ovary, Open Approach (ICD-10-PCS; 2022-09-04)
PROC: 0UN50ZZ Release Right Fallopian Tube, Open Approach (ICD-10-PCS; 2022-09-04)
PROC: 10D00Z1 Extraction of Products of Conception, Low, Open Approach (ICD-10-PCS; principal; 2022-09-04 11:00)
PROC: 0DN80ZZ Release Small Intestine, Open Approach (ICD-10-PCS; 2022-09-04 11:00)
DX: O99.62 Diseases of the digestive system complicating childbirth (principal); K51.90 Ulcerative colitis, unspecified, without complications; K56.51 Intestinal adhesions [bands], with partial obstruction; K91.858 Other complications of intestinal pouch; O60.14X0 Preterm labor third trimester with preterm delivery third trimester, not applicable or unspecified; O76 Abnormality in fetal heart rate and rhythm complicating labor and delivery; N73.6 Female pelvic peritoneal adhesions (postinfective); Z37.0 Single live birth; Z3A.36 36 weeks gestation of pregnancy; Z88.8 Allergy status to other drugs, medicaments and biological substances; Z90.49 Acquired absence of other specified parts of digestive tract; Z79.899 Other long term (current) drug therapy; Z98.890 Other specified postprocedural states; Z93.3 Colostomy status; Z93.2 Ileostomy status; Z87.891 Personal history of nicotine dependence
CPT/HCPCS: 36415; 59025; 74019; 74177; 76705; 80048; 80053; 81003; 82150; 82570; 83605; 83690; 83735; 84100; 84156; 85025; 86850; 86900; 86901; A9270; C1751; C9113; J0330; J0456; J1100; J1170; J1885; J2210; J2270; J2370; J2405; J2550; J2590; J2704; J2765; J3010; J3105; J3480; J7050; J7120; Q9967

== ENCOUNTER 2022-12-03 20:18 | Inpatient (IN) | payer OTHER ==
[~2022-12-03] VITALS: Ht 157.5 cm; Wt 84.8 kg
[~2022-12-03 20:18] MED LIST changes: +CANASA1000 MG PR; +NYST237S MT; +ONDA4 PO
[2022-12-03 20:53] LABS: BASOPHILS ABSOLUTE AUTO 0.07 K/mm3 (0.00-0.23); BASOPHILS PERCENT AUTO 1 % (0-2); EOSINOPHILS PERCENT AUTO 6 % (0-6); Hemoglobin 13.5 g/dL (11.5-16.0); IMMATURE GRAN ABSOLUTE AUTO 0.01 K/mm3 (0.00-0.10); IMMATURE GRAN PERCENT AUTO 0 % (0-1); LYMPHOCYTES ABSOLUTE AUTO 4.34 K/mm3 (0.84-5.20); LYMPHOCYTES PERCENT AUTO 46 % (21-46); MONOCYTES ABSOLUTE AUTO 0.49 K/mm3 (0.16-1.47); MONOCYTES PERCENT AUTO 5 % (4-13); Mean Corpuscular HGB 23.6 pg (26.0-34.0); Mean Corpuscular HGB Conc 31.4 g/dL (31.5-36.5); Mean Corpuscular Volume 75 fL (80-100); Mean Platelet Volume 9.7 fL (9.1-12.4); NEUTROPHILS ABSOLUTE AUTO 4.01 K/mm3 (1.96-9.15); NEUTROPHILS PERCENT AUTO 42 % (41-73); Platelet Count 357 K/mm3 (150-400); RDW Coefficient Variation 14.4 % (11.7-14.2); RDW Standard Deviation 38.7 fL (35.1-46.3); Red Blood Cell Count 5.73 M/mm3 (3.80-5.20); White Blood Cell Count 9.52 K/mm3 (4.00-11.30)
[2022-12-03 21:11] LABS: Bilirubin, Total 0.5 mg/dL (0.1-1.0); Bun/Creatinine Ratio 7.3 (12.0-20.0); Calcium, Blood 9.7 mg/dL (8.5-10.1); Creatinine, Blood 0.68 mg/dL (0.40-1.00); Potassium, Blood 3.7 mmol/L (3.5-5.5); Total Protein, Blood 7.9 g/dL (6.4-8.2)
[2022-12-03 21:22] LABS: Albumin, Blood 3.9 g/dL (3.4-5.0)
[2022-12-03 22:39] LABS: Source, Urine Clean Catch
[2022-12-03 22:52] LABS: Bilirubin, Urine Neg (Neg); Blood, Urine Neg (Neg); Glucose Qualitative, Urine Neg (Neg); Ketones, Urine Neg (Neg); Leukocyte Esterase, Urine 1+ (Neg); Nitrite, Urine Neg (Neg); Protein, Urine Neg (Neg); Specific Gravity, Urine 1.005 (1.003-1.022); Urobilinogen, Urine NORM (Normal)
[2022-12-03 22:53] LABS: Appearance, Urine Clear (Clear); Color, Urine Pale Yellow (P-Yellow)
[2022-12-03 22:55] LABS: Bacteria Not Seen /hpf; Red Blood Cells, Urine Not Seen /hpf (0-2); Squamous Epithelial Cells Few /hpf (Few); White Blood Cells, Urine 0-2 /hpf (0-5)
[2022-12-04 01:09] VITALS: BP 145/92
--- NOTE | 2022-12-04 06:09 | NUR ---
SHIFT SUMMARY PT ER ADMIT THIS SHIFT FOR SBO, PT HAS BEEN HAVING ABD PAIN AND N/V FOR A FEW DAYS. PT HAS A PMH OF ULCERATIVE COLITIS AND BOWEL OBSTRUCTIONS. PT HAS HAD INTERMITTENT NAUSEA WITH DRY HEAVES AND CRAMPING ABD PAIN, MEDICATED PER EMAR PRN WITH EFFECT. PT HAS ATTEMPTED TO HAVE A BM SINCE ADMISSION BUT HAS BEEN UNSUCESSFUL. BOWEL TONES ARE HYPERACTIVE THIS AM. IVF INFUSING. PLAN IS FOR BOWEL FOLLOW THROUGH TODAY. PT HAS BEEN NPO MOST OF THE NIGHT. OK FROM DR. MCPHERSON FOR ICE CHIPS THIS AM. SURGICAL CONSULT IN PLACE, SURGEON NOTIFIED IN ER. NO ACUTE CHANGES SINCE ADMISSION. BED IN LOWEST POSITION, CALL LIGHT WITHIN REACH.
[2022-12-04 07:50] VITALS: BP 95/63
[2022-12-04 15:18] VITALS: BP 118/75
--- NOTE | 2022-12-04 16:29 | NUR ---
SHIFT SUMMARY PT AOX4 AND INDEPENDENT TO THE BATHROOM. ORIGINIALLY HAD A SMALL BOWEL FOLLOW THRU SCHEDULED TODAY BUT THREW UP A MAJORITY OF THE CONTRAST PRIOR TO THE PROCEDURE. DR. MARTINEZ CAME AND SAW THE PT, STATING TO OBSERVE OVER NIGHT TO SEE IF THE ISSUES RESOLVES ITSELF. THE PT HAD A LARGE, WATERY BM THIS AFTERNOON AND SAID IT HAS PROVIDED SOME RELIEF. HER L ARM IV WENT BAD AND A NEW IV WAS STARTED IN THE R ARM. SHE REMAINS NPO, ONLY EATING ICE CHIPS. THE ORDER FOR FLUIDS HAS DISCONTINUED AFTER THE SECOND BAG. HER FAMILY HAS BEEN IN AND OUT OF THE ROOM. SHE HAS C/O PAIN AND NAUSEA, MEDICATED PER THE EMAR. CALL LIGHT IS WITHIN REACH AND BED IN THE LOWEST POSITION. WILL REPORT TO ONCOMING NURSE.
[2022-12-04 20:04] VITALS: BP 115/73
[2022-12-05 05:00] VITALS: BP 95/58
[2022-12-05 05:08] LABS: BASOPHILS ABSOLUTE AUTO 0.03 K/mm3 (0.00-0.23); BASOPHILS PERCENT AUTO 1 % (0-2); EOSINOPHILS ABSOLUTE AUTO 0.33 K/mm3 (0.00-0.68); EOSINOPHILS PERCENT AUTO 7 % (0-6); Hematocrit 36.1 % (33.0-51.0); Hemoglobin 10.9 g/dL (11.5-16.0); IMMATURE GRAN PERCENT AUTO 0 % (0-1); LYMPHOCYTES ABSOLUTE AUTO 3.03 K/mm3 (0.84-5.20); LYMPHOCYTES PERCENT AUTO 61 % (21-46); MONOCYTES ABSOLUTE AUTO 0.66 K/mm3 (0.16-1.47); MONOCYTES PERCENT AUTO 13 % (4-13); Mean Corpuscular HGB 23.4 pg (26.0-34.0); Mean Corpuscular HGB Conc 30.2 g/dL (31.5-36.5); Mean Corpuscular Volume 78 fL (80-100); Mean Platelet Volume 9.9 fL (9.1-12.4); NEUTROPHILS PERCENT AUTO 18 % (41-73); Platelet Count 247 K/mm3 (150-400); RDW Coefficient Variation 14.6 % (11.7-14.2); RDW Standard Deviation 40.8 fL (35.1-46.3); Red Blood Cell Count 4.66 M/mm3 (3.80-5.20); White Blood Cell Count 4.95 K/mm3 (4.00-11.30)
[2022-12-05 05:25] LABS: Albumin, Blood 3.1 g/dL (3.4-5.0); Anion Gap 0 mmol/L (6-16); Blood Urea Nitrogen 6 mg/dL (8-24); Bun/Creatinine Ratio 8.2 (12.0-20.0); CO2, Blood 27 mmol/L (21-32); Calcium, Blood 8.5 mg/dL (8.5-10.1); Chloride, Blood 111 mmol/L (98-108); Creatinine, Blood 0.73 mg/dL (0.40-1.00); Glomerular Filtration Rate 116 (60-); Glucose, Blood 93 mg/dL (70-99); Phosphorus, Blood 3.7 mg/dL (2.5-4.9); Potassium, Blood 3.1 mmol/L (3.5-5.5); Sodium, Blood 138 mmol/L (136-145)
--- NOTE | 2022-12-05 06:22 | NUR ---
A/OX4; CALM AND COOPERATIVE. C/O ABD PAIN; PRN ANALGESICS PER EMAR. C/O FEELING NAUSEATED; PRN ANTI-EMETICS PER EMAR. SOMEWHAT HELPFUL PER PATIENT. IND IN ROOM. SOFT BPs. MULTIPLE LOOSE BMS. SLEEP PROMOTED. CALL LIGHT IN REACH; ENCOURAGED TO MAKE NEEDS KNOWN.
[2022-12-05 07:25] VITALS: BP 98/69
[2022-12-05 16:19] VITALS: BP 119/78
--- NOTE | 2022-12-05 18:01 | NUR ---
SHIFT SUMMARY NO ACUTE CHANGES. PT'S HAD A POWERGLIDE PLACED TODAY, IT WORKS WELL. SHE HAS C/O N/P T/O THE SHIFT AND WAS MEDICATED PER THE EMAR. SHE IS TOLERATING HER CLEAR LIQUID DIET WELL. POSSIBLE D/C TOMORROW. WILL REPORT TO ONCOMING NURSE.
[2022-12-05 20:52] VITALS: BP 115/69
[2022-12-06 02:51] VITALS: BP 107/72
[2022-12-06 04:35] LABS: BASOPHILS ABSOLUTE AUTO 0.04 K/mm3 (0.00-0.23); BASOPHILS PERCENT AUTO 1 % (0-2); EOSINOPHILS ABSOLUTE AUTO 0.33 K/mm3 (0.00-0.68); EOSINOPHILS PERCENT AUTO 6 % (0-6); Hematocrit 36.7 % (33.0-51.0); Hemoglobin 11.3 g/dL (11.5-16.0); IMMATURE GRAN PERCENT AUTO 0 % (0-1); LYMPHOCYTES ABSOLUTE AUTO 3.72 K/mm3 (0.84-5.20); LYMPHOCYTES PERCENT AUTO 63 % (21-46); MONOCYTES ABSOLUTE AUTO 0.48 K/mm3 (0.16-1.47); MONOCYTES PERCENT AUTO 8 % (4-13); Mean Corpuscular HGB 23.4 pg (26.0-34.0); Mean Corpuscular HGB Conc 30.8 g/dL (31.5-36.5); Mean Corpuscular Volume 76 fL (80-100); NEUTROPHILS PERCENT AUTO 22 % (41-73); Platelet Count 264 K/mm3 (150-400); RDW Coefficient Variation 14.6 % (11.7-14.2); RDW Standard Deviation 39.8 fL (35.1-46.3); Red Blood Cell Count 4.82 M/mm3 (3.80-5.20); White Blood Cell Count 5.87 K/mm3 (4.00-11.30)
[2022-12-06 05:14] LABS: Anion Gap 2 mmol/L (6-16); Blood Urea Nitrogen 4 mg/dL (8-24); Bun/Creatinine Ratio 5.7 (12.0-20.0); CO2, Blood 27 mmol/L (21-32); Chloride, Blood 108 mmol/L (98-108); Creatinine, Blood 0.71 mg/dL (0.40-1.00); Glomerular Filtration Rate 120 (60-); Glucose, Blood 94 mg/dL (70-99); Phosphorus, Blood 3.9 mg/dL (2.5-4.9); Potassium, Blood 3.3 mmol/L (3.5-5.5); Sodium, Blood 137 mmol/L (136-145)
[2022-12-06 07:30] VITALS: BP 121/66
[2022-12-06 15:49] VITALS: BP 112/78
[2022-12-06] MEDS ORDERED: ONDA4ODT MM (16:00)
[2022-12-06] MEDS ORDERED: TRAM50 PO (16:01)
--- NOTE | 2022-12-06 17:51 | NUR ---
PT DISCHARGED HOME. DISCHARGE PACKET EXPLAINED TO PT. NO NEW QUESTIONS OR CONCERNS. MEDICATIONS FAXED TO [facility] AND MEDICATION SCRIPT GIVEN TO PT. HEYDI ESTEBAN. PT ABLE TO DRESS INDEPENDENTLY. ALL BELONGINGS SENT HOME WITH PT. PT TAKEN BY WHEELCHAIR TO WAITING VEHICLE.
== END 2022-12-06 17:45 | disposition home or self-care (01) | DRG 390 ==
LOC: ER 20:18 → MEDS 23:31
PROVIDERS: Family Medicine; Student in an Organized Health Care Education/Training Program; ADMIT Student in an Organized Health Care Education/Training Program
DX: K56.609 Unspecified intestinal obstruction, unspecified as to partial versus complete obstruction (principal); G40.909 Epilepsy, unspecified, not intractable, without status epilepticus; E87.6 Hypokalemia; E88.09 Other disorders of plasma-protein metabolism, not elsewhere classified; D64.9 Anemia, unspecified; Z90.49 Acquired absence of other specified parts of digestive tract; Z98.890 Other specified postprocedural states; Z98.891 History of uterine scar from previous surgery; Z88.1 Allergy status to other antibiotic agents; Z88.8 Allergy status to other drugs, medicaments and biological substances; Z79.899 Other long term (current) drug therapy
CPT/HCPCS: 36415; 74018; 74022; 74177; 74250; 80053; 80069; 81001; 81025; 83690; 85025; 96361; 96374-59; 96375; 96376; 99285-25; J1885; J2270; J2405; J2765; J3010; J3480; J7030; J7120; Q9967

== ENCOUNTER 2023-06-28 01:45 | Observation (INO) | payer OTHER ==
[2023-06-28] VITALS (10 sets, daily range): BP systolic 110–127; BP diastolic 69–95
[~2023-06-28] VITALS: Ht 157.5 cm; Wt 86.2 kg
[~2023-06-28 01:45] MED LIST changes: +TRAM50 PO
[2023-06-28 03:05] LABS: BASOPHILS ABSOLUTE AUTO 0.06 K/mm3 (0.00-0.23); BASOPHILS PERCENT AUTO 0 % (0-2); EOSINOPHILS ABSOLUTE AUTO 0.43 K/mm3 (0.00-0.68); EOSINOPHILS PERCENT AUTO 3 % (0-6); Hemoglobin 15.4 g/dL (11.5-16.0); IMMATURE GRAN ABSOLUTE AUTO 0.05 K/mm3 (0.00-0.10); IMMATURE GRAN PERCENT AUTO 0 % (0-1); LYMPHOCYTES ABSOLUTE AUTO 2.62 K/mm3 (0.84-5.20); LYMPHOCYTES PERCENT AUTO 19 % (21-46); MONOCYTES ABSOLUTE AUTO 0.85 K/mm3 (0.16-1.47); MONOCYTES PERCENT AUTO 6 % (4-13); Mean Corpuscular HGB 27.1 pg (26.0-34.0); Mean Corpuscular HGB Conc 32.8 g/dL (31.5-36.5); Mean Corpuscular Volume 83 fL (80-100); Mean Platelet Volume 10.2 fL (9.1-12.4); NEUTROPHILS ABSOLUTE AUTO 9.87 K/mm3 (1.96-9.15); NEUTROPHILS PERCENT AUTO 71 % (41-73); Platelet Count 268 K/mm3 (150-400); Red Blood Cell Count 5.69 M/mm3 (3.80-5.20); White Blood Cell Count 13.88 K/mm3 (4.00-11.30)
[2023-06-28 03:30] LABS: Albumin, Blood 4.1 g/dL (3.4-5.0); Bilirubin, Total 0.5 mg/dL (0.1-1.0); Bun/Creatinine Ratio 9.6 (12.0-20.0); Calcium, Blood 9.2 mg/dL (8.5-10.1); Creatinine, Blood 0.73 mg/dL (0.40-1.00); Potassium, Blood 3.5 mmol/L (3.5-5.5); Thyroid Stimulating Hormone 2.12 uIU/mL (0.360-4.800); Total Protein, Blood 8.1 g/dL (6.4-8.2)
[2023-06-28 04:39] LABS: Source, Urine Clean Catch
[2023-06-28 05:04] LABS: Bilirubin, Urine Neg (Neg); Blood, Urine Neg (Neg); Glucose Qualitative, Urine Neg (Neg); Ketones, Urine Neg (Neg); Leukocyte Esterase, Urine Neg (Neg); Nitrite, Urine Neg (Neg); Protein, Urine 1+ (Neg); Specific Gravity, Urine 1.005 (1.003-1.022); Urobilinogen, Urine NORM (Normal)
[2023-06-28 05:18] LABS: Appearance, Urine Clear (Clear); Color, Urine Pale Yellow (P-Yellow)
[2023-06-28 05:29] LABS: U Cannabinoids Screen DETECTED
[2023-06-28 05:30] LABS: U Amphetamine Screen Not Detected; U Barbituate Screen Not Detected; U Benzodiazapine Screen Not Detected; U Buprenorphine Screen Not Detected; U Cocaine Screen Not Detected; U Methadone Screen Not Detected; U Methamphetamine Screen Not Detected; U Opiates Screen Not Detected; U Oxycodone Screen Not Detected; U Phencyclidine Screen Not Detected; U Propoxyphene Screen Not Detected
--- NOTE | 2023-06-28 06:28 | NUR ---
06/28/23 0628 Katelyn Rodrigues UPON ARRIVING TO THE OR, GAVE PATIENT ANCEF 2GM IV AT 0602.
--- NOTE | 2023-06-28 14:55 | NUR ---
POST OP: REPORT RECEIVED FROM MOTION AND TIME STUDY TEACHER. PT TO UNIT AT ABOUT 0850, A/O, VSS. PT DENIES PAIN AT THIS TIME. SURGICAL SITES WNL. PT ORIENTED TO ROOM AND CALL LIGHT. EDUCATED ABOUT FIRE SAFETY AND IGNITION SOURCE RISK. VERBALIZED UNDERSTANDING.
[2023-06-28] MEDS ORDERED: OXYC5 PO (15:37)
--- NOTE | 2023-06-28 15:50 | NUR ---
DISCHARGE TOLERATED REG DIET. DENIES N/V OR INCREASE IN ABD PAIN. MEDICATE w/ PO MEDS PRIOR TO DC IN ANTCIPATION OF DRIVE HOME. PLEASANT & EXCITED TO GO HOME. ESCORTED OUT VIA WC.
== END 2023-06-28 15:48 | disposition home or self-care (01) ==
LOC: ER 01:45 → SURS 01:46
PROVIDERS: Emergency Medicine; ADMIT Surgery
PROC: 0DS Gastrointestinal System, Reposition (ICD-10-PCS; principal; 2023-06-28 05:15)
DX: K56.2 Volvulus (principal); K46.9 Unspecified abdominal hernia without obstruction or gangrene
CPT/HCPCS: 74177; 80053; 83605; 84443; 84703; 85025; 96361; 96374; 96375; 96376; 99285-25; A9270; G0378; J0690; J1100; J1170; J1885; J2250; J2405; J2704; J3010; J7030; Q9967